=== PATIENT | female | born 1960 | race Caucasian/White ===

== ENCOUNTER 2018-01-01 09:38 | Day surgery (SDC) | payer OTHER ==
[~2018-01-01] VITALS: Ht 170.2 cm; Wt 98.4 kg
== END 2018-01-01 12:15 | disposition home or self-care (01) ==
LOC: ORSCSDS 09:38
PROVIDERS: Internal Medicine Gastroenterology
PROC: 0DBH8ZX Excision of Cecum, Via Natural or Artificial Opening Endoscopic, Diagnostic (ICD-10-PCS; principal; 2018-01-01 11:00)
PROC: 0DBL8ZX Excision of Transverse Colon, Via Natural or Artificial Opening Endoscopic, Diagnostic (ICD-10-PCS; principal; 2018-01-01 11:00)
DX: Z12.11 Encounter for screening for malignant neoplasm of colon (principal); D12.0 Benign neoplasm of cecum; D12.3 Benign neoplasm of transverse colon; K63.89 Other specified diseases of intestine; K64.8 Other hemorrhoids; E78.00 Pure hypercholesterolemia, unspecified
CPT/HCPCS: 88305; J7120

== ENCOUNTER → 2019-12-07 | Outpatient (CLI) | payer OTHER ==
[2019-12-17 10:47] LABS: SOURCE: CERVIX
== END | disposition home or self-care (01) ==
LOC: LAB 13:19 → LAB SHORT 13:19
PROVIDERS: Hospitalist
DX: Z12.4 Encounter for screening for malignant neoplasm of cervix (principal)
CPT/HCPCS: G0145

== ENCOUNTER 2024-03-04 07:23 | Day surgery (SDC) | payer MEDICARE, OTHER ==
[~2024-03-04] VITALS: Ht 170.2 cm; Wt 100.3 kg
[2024-03-04] MEDS ORDERED: propofoL 50 ML IV ONE (07:31)
[2024-03-04] MEDS ORDERED: Lactated Ringer's 1,000 ML IV ONE ×2 (07:32→08:08)
[2024-03-04 09:54] VITALS: BP 109/76
== END 2024-03-04 09:57 | disposition home or self-care (01) ==
LOC: ORSCSDS 07:23
PROVIDERS: Internal Medicine Gastroenterology
PROC: 0DBK8ZX Excision of Ascending Colon, Via Natural or Artificial Opening Endoscopic, Diagnostic (ICD-10-PCS; principal; 2024-03-04 08:45)
DX: Z12.11 Encounter for screening for malignant neoplasm of colon (principal); Z86.010 Personal history of colon polyps; D12.2 Benign neoplasm of ascending colon; K63.5 Polyp of colon; E78.5 Hyperlipidemia, unspecified; E07.9 Disorder of thyroid, unspecified
CPT/HCPCS: 88305; J2704; J7120